=== PATIENT | male | born 1970 | race Two or more races ===

== ENCOUNTER 2022-12-31 08:48 | Outpatient (AMB) | payer OTHER, SELFPAY ==
--- NOTE | 2022-12-31 09:05 | AM.OFFWIN_ITS ---
Intake Vital Signs 12/31/22 09:06 Height 6 ft 2 in Weight 227 lb BMI 29.1 BP 124/82 Blood Pressure Location Rt brachial Position Sitting Pulse 78 Pulse Source Pulse Oximeter Temp 97.2 F Temp Source Temporal Artery Scan Pulse Oximetry (%) 99 Oxygen Delivery Method Room Air Intake Visit Reasons: STERILE PROCESSING TECHNICIAN, Bladder fullness Intake Note: Patient here for difficulty urinating, feels like he is not letting all of it out which started yesterday. Patient Tobacco Use Status: Never used Tobacco Allergies Sulfa (Sulfonamide Antibiotics) Adverse Reaction (Mild, Verified 12/31/22 10:02) hives Medication List - Last Reconciled 12/31/22 by Jarod Billingsley MD No Known Home Meds Do you need a note to return to daycare/school/sports/work: No HPI STERILE PROCESSING TECHNICIAN, Bladder fullness HPI Details 52-year-old male presents to the office for a sick visit. Since last night patient is having difficulty urinating. He reports that he is applying pressure while urinating. At times he has had an adequate voiding in the night. He had to get up once to use the bathroom. There is no hesitancy. No urinary incontinence or leakage. PFSH Social History Patient Tobacco Use Status: Never used Tobacco Physical Exam Vital Signs: Last Vital Signs Temp 97.2 F 12/31/22 09:06 Pulse 78 12/31/22 09:06 BP 124/82 12/31/22 09:06 Pulse Ox 99 12/31/22 09:06 Oxygen Delivery Method Room Air 12/31/22 09:06 BMI result Body Mass Index 29.1 Const General: cooperative and healthy appearing Nutritional Appearance: well nourished Orientation/consciousness: patient oriented x3 Limitations: no limitations HEENT Head: Yes normal to inspection Eyes General: appearance normal, both eyes and all related structures Neck Neck: Yes normal visual inspection Chest Chest palpation & inspection: normal palpation of entire chest wall Resp Effort & Inspection: normal respiratory effort Other: No suprapubic tenderness or discomfort. Testicular exam normal. Neuro General: patient oriented x3 Results AMB Urinalysis, Automated UA Leukoctes 0 Iraida/uL Last Edit by FINN Bermudez on 12/31/22 09:52 UA Nitrite Negative Last Edit by FINN Bermudez on 12/31/22 09:52 UA Urobilinogen 0.2 mg/dL Last Edit by [facility] on 12/31/22 09:52 UA Protein 0 mg/dL Last Edit by Gerber Garcia [facility] on 12/31/22 09:52 UA pH 6.0 Last Edit by Gerber Garcia [facility] on 12/31/22 09:52 UA Blood 0 Luis/uL Last Edit by Gerber Garcia [facility] on 12/31/22 09:52 UA Specific [place] 1.020 Last Edit by [facility] on 12/31/22 09:52 UA Ketone Negative Last Edit by Gerber Garcia [facility] on 12/31/22 09:52 UA Bilirubin 0 mg/dL Last Edit by Gerber Garcia [facility] on 12/31/22 09:52 UA Glucose 0 mg/dL Last Edit by Gerber Garcia [facility] on 12/31/22 09:52 Results Reviewed Results Reviewed: Laboratory Last Values Urine pH (Auto) 6.0 12/31/22 09:51 Specific [place] (Auto) 1.020 12/31/22 09:51 Urine Protein (Auto) 0 mg/dL 12/31/22 09:51 Glucose (UA)(Auto) 0 mg/dL 12/31/22 09:51 Urine Ketones (Auto) Negative 12/31/22 09:51 Urine Blood (Auto) 0 Luis/uL 12/31/22 09:51 Urine Nitrite (Auto) Negative 12/31/22 09:51 Urine Bilirubin (Auto) 0 mg/dL 12/31/22 09:51 Urine Urobilinogen (Auto) 0.2 mg/dL 12/31/22 09:51 Leukocyte Esterase (Auto) 0 Iraida/uL 12/31/22 09:51 Assessment & Plan Assessment & Plan (1) Urinary retention: Code(s): R33.9 - Retention of urine, unspecified Plan: Symptoms have been present for a very limited time. Diagnosis is unclear. Urinalysis for was reviewed and no evidence of infection. Patient was advised to follow-up with primary care if symptoms persist and may need an ultrasound. After patient left, a message was left on his phone informing him to get PSA blood work done. Orders: Orders AMB Urinalysis Automated Today Z13.9 - Encounter for screening, unspecified Coding Level of Care Code Est Pt Level 4 (61931) Diagnoses Urinary retention R33.9
[2022-12-31 09:06] VITALS: BP 124/82; PULSE 78; TEMP 36.2; O2SAT 99; BMI 29.1
== END 2022-12-31 10:29 | disposition home or self-care (01) ==
PROVIDERS: Visit Provider Internal Medicine
DX: R33.9 Retention of urine, unspecified (principal)
CPT/HCPCS: 81003; 99214